=== PATIENT | female | born 1980 | race Caucasian/White ===

== ENCOUNTER 2016-08-30 12:39 | Emergency (ER) | payer BC ==
[~2016-08-30] VITALS: Ht 170.2 cm; Wt 68.0 kg
[2016-08-30 12:51] VITALS: BP 165/84
--- NOTE | 2016-08-30 13:29 | RAD ---
EXAM: Left knee, 4 views. HISTORY: Pain. COMPARISON: None. FINDINGS: Frontal, lateral, tunnel and sunrise views of the left knee are obtained. There is no fracture, dislocation or subluxation. There is suspected trace joint fluid. IMPRESSION: No acute osseous finding.
[2016-08-30] MEDS ORDERED: TRAM-29 PO (14:54)
--- NOTE | 2016-08-30 14:55 | PHYS DOC ---
Past Medical History Past Medical History: Anxiety, Other Additional Past Medical Histor: KIDNEY STONES Past Surgical History: Appendectomy, Cholecystectomy, Other Additional Past Surgical Histo: LEFT KNEE SX(4X), KIDEY STENTS, D&C, UTERINE ABLASION Alcohol Use: None Drug Use: None Adult General Chief Complaint Chief Complaint: KNEE INJURY HPI HPI Patient is a 36 year old patient is in the ED with left knee pain after twisting it today. Review of Systems Review of Systems Constitutional: Denies fever or chills [] Musculoskeletal: Right knee pain Integument: Denies rash or skin lesions [] Neurologic: Denies headache, focal weakness or sensory changes [] Endocrine: Denies polyuria or polydipsia [] Current Medications Current Medications Current Medications Medications (Trade) Dose Ordered Sig/Tab Start Time Stop Time Status Last Admin Dose Admin Tramadol HCl (Ultram) 50 mg 1X ONCE 08/30/16 15:00 08/30/16 15:01 08/30/16 14:30 50 MG Allergies Allergies Allergies Coded Allergies Type Severity Reaction Last Updated Verified ketorolac Allergy Intermediate Rash 08/30/16 Yes Physical Exam Physical Exam Constitutional: Well developed, well nourished, no acute distress, non-toxic appearance. [] Skin: Warm, dry, no erythema, no rash. [] Back: No tenderness, no CVA tenderness. [] Extremities: Right knee with no obvious deformity. Tenderness on palpation of the medial and lateral aspect of the right knee. Full range of motion to the right knee. Negative Tiffany sign and negative Antonino's sign negative anterior -posterior drawer sign to the right knee. +2 right pedal pulse. Cap refill less than 2 seconds the right lower extremity. Sensation intact to the right lower extremity. Neurologic: Alert and oriented X 3, normal motor function, normal sensory function, no focal deficits noted. [] Psychologic: Affect normal, judgement normal, mood normal. [] Current Patient Data Vital Signs Vital Signs Date Time Temp Pulse Resp B/P Pulse Ox O2 Delivery O2 Flow Rate FiO2 08/30/16 14:30 18 97 Room Air 08/30/16 12:51 98.8 89 98.8 EKG EKG [] Radiology/Procedures Radiology/Procedures [] Course & Med Decision Making Course & Med Decision Making Pertinent Labs and Imaging studies reviewed. (See chart for details) Patient is in the ED with right knee pain after twisting it. Right knee x-rays interpreted by radiologist are negative for any acute findings. Immobilizer was applied to the right knee. Ice elevation encouraged. Follow-up with Ortho in one week if pain continues. Dragon Disclaimer Dragon Disclaimer This electronic medical record was generated, in whole or in part, using a voice recognition dictation system. Departure Departure Impression: Primary Impression: Left knee sprain Disposition: HOME, SELF-CARE Condition: STABLE Referrals: NO PCP (PCP) MARY POLLARD MD See the provided orthopedic doctor or your own doctor in one week Patient Instructions: Knee Sprain Additional Instructions: You have knee sprain, ice and elevate the extremity. Wear the immobilizer as needed and tolerated. Follow-up with orthopedic doctor in one week if pain continues. Scripts Tramadol Hcl (Ultram)50 Mg Tablet1 Tab PO Q6HRS #30 TAB Prov:DALE MARCELO APRN 08/30/16 Problem Qualifiers Primary Impression: Left knee sprain Encounter type: initial encounter Involved ligament of knee: unspecified ligament Qualified Code: S83.92XA - Sprain of unspecified site of left knee, initial encounter DALE MARCELO APRN Aug 30, 2016 14:55
[2016-08-30] MEDS ORDERED: TRAMADOL 50 MG TABLET. PO ONE (15:00)
== END 2016-08-30 15:02 | disposition home or self-care (01) ==
LOC: ER 12:39
DX: S83.92XA Sprain of unspecified site of left knee, initial encounter (principal); F41.9 Anxiety disorder, unspecified; Z88.6 Allergy status to analgesic agent; Z98.890 Other specified postprocedural states; X58.XXXA Exposure to other specified factors, initial encounter; Y93.89 Activity, other specified; Y92.89 Other specified places as the place of occurrence of the external cause; Y99.8 Other external cause status
CPT/HCPCS: 29505; 73564; 99284-25